=== PATIENT | female | born 1955 | race Caucasian/White ===

== ENCOUNTER → 2020-03-22 | Outpatient (CLI) | payer MEDICARE ==
--- NOTE | 2020-03-22 10:15 | Diagnostic Imaging Report ---
EXAMINATION: Renal Doppler ultrasound. CLINICAL HISTORY :Hypertension COMPARISON: None TECHNIQUE: Grayscale and color Doppler evaluation of the kidneys was performed in transverse and longitudinal planes. Doppler interrogation of the main, hilar, segmental and arcuate renal arteries bilaterally as well as evaluation of the aorta were performed. DISCUSSION: RIGHT KIDNEY: The right kidney measures 10.8 cm in length and shows normal echogenicity. The right renal cortex measures 1.5 cm. No hydronephrosis, shadowing calculi or solid mass lesions. . Right main renal artery PSV is 51.1 cm/sec. Highest right segmental artery PSV is 29.6 cm/sec. Right main renal artery resistive index measures up to 0.76 proximally, slightly elevated. The right renal artery PSV/aortic PSV ratio is 0.7. LEFT KIDNEY: The left kidney measures 10.7 cm in length and shows normal echogenicity. The left renal cortex measures 1.6 cm. No hydronephrosis, shadowing calculi or solid mass lesions. Left main renal artery PSV is 71.8 cm/sec. Highest left segmental artery PSV is 55.0 cm/sec. Left main renal artery resistive index measures up to 0.77 proximally, slightly elevated. The left renal artery PSV/aortic PSV ratio is 0.8. Abdominal aortic PSV is 71.8 cm/sec. Incidental note made of hepatic steatosis. IMPRESSION: No definite evidence of renal artery stenosis. No hydronephrosis or renal calculi. Hepatic steatosis. Signed by: Kei Arnold MD on 03/22/2020 10:12 AM
== END ==
LOC: US 07:25
PROVIDERS: ATTEND Internal Medicine
DX: I10 Essential (primary) hypertension (principal)
CPT/HCPCS: 76770; 93976